=== PATIENT | male | born 1985 | race Caucasian/White ===

== ENCOUNTER 2017-04-16 07:30 | Day surgery (SDC) | payer OTHER ==
[~2017-04-16] VITALS: Ht 188 cm; Wt 99.3 kg
[~2017-04-16 07:30] MED LIST: MOBIC15 MG PO; PAXIL20 MG PO; TRAZODONE HCL100 MG PO
[2017-04-16] MEDS ORDERED: ZOLOFT50 MG PO (07:48)
[2017-04-16] MEDS ORDERED: AMITRIPTYLINE H50 MG PO (07:48)
--- NOTE | 2017-04-16 10:52 | NUR ---
[facility]17 [facility] DECRE[facility] TO 6L VIA MASK.
--- NOTE | 2017-04-16 11:22 | NUR ---
APPLESAUCE, PUDDING AND ICED WATER GIVEN. PT EATS AND IS TOLERATING THAT WELL.
[2017-04-16] MEDS ORDERED: NORCO 5-325 TA1 EACH PO (11:33)
--- NOTE | 2017-04-16 12:21 | NUR ---
PT STANDS AND AMBULATES WELL TO BR AND REPORTS SUCCESSFUL VOID. VERBAL DC INSTRUCTIONS GIVEN AND PT VERBALIZES UNDERSTANDING.
--- NOTE | 2017-04-16 12:30 | NUR ---
CALL REPORT GIVEN TO RN, JONATHAN @ [facility] AND QUESTIONS ARE ANSWERED.
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
== END 2017-04-16 12:28 | disposition home or self-care (01) ==
LOC: DS 07:30
PROVIDERS: Colon & Rectal Surgery
PROC: 0YU50JZ Supplement Right Inguinal Region with Synthetic Substitute, Open Approach (ICD-10-PCS; principal; 2017-04-16 08:45)
DX: K40.91 Unilateral inguinal hernia, without obstruction or gangrene, recurrent (principal); I10 Essential (primary) hypertension; Z98.890 Other specified postprocedural states; Z79.899 Other long term (current) drug therapy
CPT/HCPCS: 00830; C1781; J0690; J1100; J1644; J1885; J2250; J2405; J2704; J2765; J3010; J7120